=== PATIENT | male | born 1950 | race Caucasian/White ===

== ENCOUNTER 2018-06-07 08:29 | Day surgery (SDC) | payer OTHER ==
[2018-06-02 12:51] VITALS: BMI 22.1
[2018-06-07] MEDS: CYCLOPENTOLATE 2% OPHTH SOLN 2 ML BOTTLE ONE ×3 (08:50→09:00)
[2018-06-07] MEDS: TROPICAMIDE 1% OPHTH SOLN 15 ML BOTTLE ONE ×3 (08:50→09:00)
[2018-06-07] MEDS: PHENYLEPHRINE 2.5% OPHTH SOLN 15 ML BOTTLE ONE ×3 (08:50→09:00)
[2018-06-07] MEDS: CIPROFLOXACIN 0.3% EYE DROPS 5 ML BOTTLE ONE ×3 (08:50→09:00)
[2018-06-07] MEDS ORDERED: CARBACHOL 0.01% INTRA-OCULAR 1.5 ML VIAL ONE (09:39)
[2018-06-07] MEDS ORDERED: BSS (NA/CA/MG/K) BALANCED SALT SOLUTION OPHTH SOLN 15 ML BOTTLE ONE (09:39)
[2018-06-07] MEDS ORDERED: MIDAZOLAM HCL 2 MG/2 ML SINGLE DOSE VIAL ONE ×2 (09:47→09:57)
--- NOTE | 2018-06-07 10:38 | OP ---
DATE OF PROCEDURE: 06/07/2018 OPERATIVE PROCEDURE: Lens Phacoemulsification with Posterior Chamber Intraocular Lens Placement Left Eye PREOPERATIVE DIAGNOSIS: Visually Significant Cataract of Left Eye POSTOPERATIVE DIAGNOSIS: Visually Significant Cataract of Left Eye SURGEON: Paul Heck M.D. ANESTHESIA: MAC ANESTHESIOLOGIST: PROCEDURE: The patient was brought to the operating room and placed under monitored anesthesia care by Anesthesia. A drop of Tetracaine was then placed over the left eye. The patient was then prepped and draped in the usual sterile manner. A speculum was then placed over the left eye. The eye was then well irrigated with copious amounts of BSS (balanced salt solution). The operating microscope was then moved into position. A paracentesis was performed using a 15 degree blade. At this point 0.5 mL of 1% preservative-free lidocaine was injected into the anterior chamber. Amvisc plus was then injected into the anterior chamber. A clear corneal incision was then formed using a 2.2 mm keratome. A capsulorrhexis was then performed in a continuous circular fashion beginning with a cystotome, completed with an Utratas forceps. Hydrodissection was then performed using BSS on a cannula. The phaco probe was then introduced through the corneal wound and the cataract was removed using the phaco chop technique. Approximately 3 seconds of absolute phaco time was used. The remaining cortex was then removed using irrigation and aspiration with an I/A probe. The capsule was then filled with regular Amvisc and the capsule was noted to be intact. A previously selected foldable posterior chamber intraocular lens was then injected into the capsule through the corneal wound using a lens injector. It was then dialed into position using a Sinskey hook. The Amvisc was then removed using irrigation and aspiration. Miostat was then injected through the paracentesis to constrict the pupil. The paracentesis and corneal wound were then hydrated and noted to be water tight. A drop of Maxitrol was then placed over the eye. The speculum was removed and clear shield was taped over the eye. The patient tolerated the procedure well and there were no surgical complications. The patient was asked to follow up in my office the next day. PAUL HECK M.D. [id number]
[2018-06-07 10:39] VITALS: PULSE 63; TEMP 98
[2018-06-07 10:47] VITALS: BP 110/65
== END 2018-06-07 11:05 | disposition home or self-care (01) ==
LOC: FASU 08:29
PROVIDERS: ATTEND Ophthalmology
PROC: 08RK3JZ Replacement of Left Lens with Synthetic Substitute, Percutaneous Approach (ICD-10-PCS; principal; 2018-06-07 09:59)
DX: H26.8 Other specified cataract (principal)

== ENCOUNTER 2018-07-12 07:39 | Day surgery (SDC) | payer OTHER ==
[2018-07-05 12:46] VITALS: BMI 22.1
[2018-07-12] MEDS: CYCLOPENTOLATE 2% OPHTH SOLN 2 ML BOTTLE ONE ×3 (08:05→08:15)
[2018-07-12] MEDS: TROPICAMIDE 1% OPHTH SOLN 15 ML BOTTLE ONE ×3 (08:05→08:15)
[2018-07-12] MEDS: PHENYLEPHRINE 2.5% OPHTH SOLN 15 ML BOTTLE ONE ×3 (08:05→08:15)
[2018-07-12] MEDS: CIPROFLOXACIN 0.3% EYE DROPS 5 ML BOTTLE ONE ×3 (08:05→08:15)
[2018-07-12] MEDS ORDERED: LIDOCAINE 1% P/F 10 MG/ML VIAL ONE (09:15)
[2018-07-12] MEDS ORDERED: BSS (NA/CA/MG/K) BALANCED SALT SOLUTION OPHTH SOLN 15 ML BOTTLE ONE (09:16)
[2018-07-12] MEDS ORDERED: NEO/POLYMYX B SULF/DEXAMETH OPHTHALMIC 5ML BOTTLE ONE (09:16)
[2018-07-12] MEDS ORDERED: CARBACHOL 0.01% INTRA-OCULAR 1.5 ML VIAL ONE (09:16)
[2018-07-12] MEDS ORDERED: MIDAZOLAM HCL 2 MG/2 ML SINGLE DOSE VIAL ONE ×2 (09:23→09:31)
--- NOTE | 2018-07-12 09:56 | OP ---
DATE OF OPERATION: 07/12/2018 OPERATIVE PROCEDURE: Lens Phacoemulsification with Posterior Chamber Intraocular Lens Placement, Right Eye PREOPERATIVE DIAGNOSIS: Visually Significant Cataract of Right Eye POSTOPERATIVE DIAGNOSIS: Visually Significant Cataract of Right Eye SURGEON: Paul De La O M.D. ANESTHESIA: MAC PROCEDURE: The patient was brought to the operating room and placed under monitored anesthesia care by Anesthesia. A drop of Tetracaine was then placed over the right eye. The patient was then prepped and draped in the usual sterile manner. A speculum was then placed over the right eye. The eye was then well irrigated with copious amounts of BSS (balanced salt solution). The operating microscope was then moved into position. A paracentesis was performed using a 15 degree blade. At this point 0.5 mL of 1% preservative free-lidocaine was injected into the anterior chamber. Amvisc plus was then injected into the anterior chamber. A clear corneal incision was then formed using a 2.2 mm keratome. A capsulorrhexis was then performed in a continuous circular fashion beginning with a cystotome completed with an Utratas forceps. Hydrodissection was then performed using BSS on a cannula. The phaco probe was then introduced through the corneal wound and the cataract was removed using the phaco chop technique. Approximately 3 seconds of absolute phaco time was used. The remaining cortex was then removed using irrigation and aspiration with an I/A probe. The capsule was then filled with regular Amvisc and the capsule was noted to be intact. A previously selected foldable posterior chamber intraocular lens was then injected into the capsule through the corneal wound using a lens injector. It was then dialed into position using a Sinskey hook. The Amvisc was then removed using irrigation and aspiration. Miostat was then injected through the paracentesis to constrict the pupil. The paracentesis and corneal wound were then hydrated and noted to be water tight. A drop of Maxitrol was then placed over the eye. The speculum was removed and clear shield was taped over the eye. The patient tolerated the procedure well and there were no surgical complications. The patient was asked to follow up in my office the next day. LAUREEN AKHTAR M.D. [id number]
[2018-07-12 10:10] VITALS: BP 100/67; PULSE 51
[2018-07-12 10:42] VITALS: TEMP 98
== END 2018-07-12 10:45 | disposition home or self-care (01) ==
LOC: FASU 07:39
PROVIDERS: ATTEND Ophthalmology
PROC: 08RJ3JZ Replacement of Right Lens with Synthetic Substitute, Percutaneous Approach (ICD-10-PCS; principal; 2018-07-12 09:31)
DX: H26.8 Other specified cataract (principal)

== ENCOUNTER 2018-11-24 09:22 | Day surgery (SDC) | payer OTHER | END 2018-11-24 12:58 | disposition home or self-care (01) | LOC: JASU-ENDO 09:22 ==

== ENCOUNTER 2023-08-14 16:03 | Emergency (ER) | payer OTHER ==
[2023-08-14 16:12] VITALS: BP 140/81; PULSE 59; RESP 18; TEMP 98.6; BMI 22.1
[2023-08-14] MEDS ORDERED: AMOX TR/POT CLAV 875MG/125MG TABLETS (FP) ONE (16:20)
[2023-08-14] MEDS ORDERED: DIPHTH,PERTUSS(ACELL),TET 0.5 ML DISP.SYRIN IM ONE (16:21)
[2023-08-14] MEDS: AMOX TR/POT CLAV 875MG/125MG TABLETS (FP) PO ONE (16:25)
[2023-08-14] MEDS: DIPHTH,PERTUSS(ACELL),TET 0.5 ML DISP.SYRIN IM ONE (16:29)
== END 2023-08-14 16:35 | disposition home or self-care (01) ==
LOC: FER 16:03
PROC: 3E0234Z Introduction of Serum, Toxoid and Vaccine into Muscle, Percutaneous Approach (ICD-10-PCS; principal; 2023-08-14)
DX: S61.452A Open bite of left hand, initial encounter (principal); W54.0XXA Bitten by dog, initial encounter
CPT/HCPCS: 90471; 90715; 99283-25